=== PATIENT | female | born 1945 | race Caucasian/White ===

== ENCOUNTER 2022-12-07 06:06 | Day surgery (SDC) | payer MEDICARE ==
[~2022-12-07] VITALS: Ht 157.5 cm; Wt 60.5 kg
[~2022-12-07 06:06] MED LIST: AMIT10TA6 PO; ATEN50TA8 PO; DIAZ10TA5 PO; DOCUMENT DATE & TIME OF BETA-BLOCKER PO ONE; FLUO40CA PO; HYDR-3965 PO; HYDR12.55 PO; LIOT25TA12 PO; VENL150C58 PO; clindamycin-Cleocin 900mg/D5W 50 ML IV ONE; famotidine 20mg tablet PO ONE; ringers solution, lacted 1,000 ML IV SCH
[2022-12-07 06:20] VITALS: BP 140/74; PULSE 58; RESP 16; TEMP 98.2; O2SAT 97
[2022-12-07] MEDS ORDERED: BUPIVAcaine/PF 2.5 mg/ml (0.25%) 30ml vial ONE (06:53)
[2022-12-07] MEDS ORDERED: midazolam 1 mg/ML 2ml injection ONE (08:00)
[2022-12-07] MEDS ORDERED: LIDOcaine 0.5% (5mg/ml) 50ml vial ONE (08:00)
[2022-12-07] MEDS ORDERED: fentaNYL/PF 50MCG/1 ML 2ML syringe ONE (08:00)
[2022-12-07] MEDS ORDERED: morphine 4 MG/ML inj SYRINge IV PRN (08:05)
[2022-12-07] MEDS ORDERED: ringers solution, lacted 1,000 ML IV SCH (08:05)
[2022-12-07] MEDS ORDERED: ondansetron/PF 4mg/2ml inj IV PRN (08:05)
[2022-12-07] MEDS ORDERED: morphine 2 MG/ML inj. syringe IV PRN (08:05)
[2022-12-07] MEDS ORDERED: meperidine/PF 25mg/ml syringe IV PRN ×3 (08:05)
[2022-12-07] MEDS ORDERED: proCHLORperazine 10 MG/2 ml inj IV PRN (08:05)
[2022-12-07] MEDS ORDERED: propofol inj 20 ML IV ONE (08:55)
[2022-12-07 08:56] VITALS: BP 134/73; PULSE 59; RESP 14; O2SAT 95
--- NOTE | 2022-12-07 08:56 | NUR ---
Received from OR via [facility], accompanied by Anesthesiologist and report given by JOHN Anesthesiologist. PATIENT AWAKE & ALERT, DENIES PAIN, V/S WNL, PIV 20G TO LEFT HAND, RIGHT WRIST DRESSING C/D/I. ICE AND ELEVATED RUE. Addendum: 12/07/22 at 0909 by Benitez Mayfield RN Amended: Links added.
[2022-12-07 09:00] VITALS: BP 128/72; PULSE 62; RESP 16; O2SAT 95
[2022-12-07 09:10] VITALS: BP 127/78; PULSE 61; RESP 15; O2SAT 94
[2022-12-07 09:20] VITALS: BP 150/79; PULSE 58; RESP 11; O2SAT 94
--- NOTE | 2022-12-07 09:36 | NUR ---
ALL DISCHARGE CRITERIA HAS BEEN MET. VSS, PAIN AT A TOLERABLE LEVEL, VOIDING AND ABLE TO SAFELY AMBULATE AND TRANSFER SELF. IV TAKEN OUT WITHOUT ANY COMPLICATIONS. ALL DISCHARGE INSTRUCTIONS COVERED WITH PATIENT AND ALL QUESTIONS ANSWERED. PATIENT TAKEN OUT VIA WHEELCHAIR WITH ALL BELONGINGS TO PERSONAL VEHICLE WHERE FAMILY DROVE PATIENT HOME. Addendum: 12/07/22 at 0941 by Benitez Mayfield RN Amended: Links added.
== END 2022-12-07 09:36 | disposition home or self-care (01) ==
LOC: PAS 06:06
PROVIDERS: ATTEND Orthopaedic Surgery Hand Surgery
DX: M18.11 Unilateral primary osteoarthritis of first carpometacarpal joint, right hand (principal); M67.431 Ganglion, right wrist; I10 Essential (primary) hypertension; F41.9 Anxiety disorder, unspecified; F32.9 Major depressive disorder, single episode, unspecified; Z87.891 Personal history of nicotine dependence; Z88.0 Allergy status to penicillin; Z90.49 Acquired absence of other specified parts of digestive tract; Z98.890 Other specified postprocedural states; Z90.710 Acquired absence of both cervix and uterus; Z79.899 Other long term (current) drug therapy
CPT/HCPCS: 25111; 25310; 25447; 82948; 93005; J2250; J2704; J3010; J3490; J7030; J7120; Z7506; Z7512; A4215; A4618; A7000